=== PATIENT | female | born 1995 | race Caucasian/White ===

== ENCOUNTER 2016-12-22 06:20 | Day surgery (SDC) | payer BC ==
[~2016-12-22 06:20] MED LIST: Lactated Ringers 1,000 ML IV SCH; Sodium Chloride 0.9% 10 ML Syringe FLUSH PRN; Sodium Chloride 0.9% 2.5 ML Syringe FLUSH PRN; ceFAZolin 1 GM in Premix Bag 1 BAG IV ONE
--- NOTE | 2016-12-22 07:05 | PCM.PREANE ---
Preanesthetic Assessment - Anesthesia/Transfusion/Family Hx Anesthesia History: Prior Anesthesia Without Reaction Family History of Anesthesia Reaction: No Transfusion History: No Prior Transfusion(s) Intubation History: Unknown - Review of Systems General: No Symptoms Pulmonary: No Symptoms Cardiovascular: No Symptoms Gastrointestinal: No symptoms Neurological: No Symptoms Other: Reports: None - Physical Assessment Height: 1.73 m Weight: 70.76 kg ASA Class: 2 Mental Status: Alert & Oriented x3 Airway Class: Mallampati = 2 Dentition: Reports: Normal Dentition Thyro-Mental Finger Breadths: 3 Mouth Opening Finger Breadths: 3 ROM/Head Extension: Full Lungs: Clear to auscultation, Normal respiratory effort Cardiovascular: Regular Rate, Regular Rhythm - Allergies Allergies/Adverse Reactions: Allergies Allergy/AdvReac Type Severity Reaction Status Date / Time codeine Allergy Swelling Verified 11/25/13 10:03 - Blood Blood Available: No - Anesthesia Plan Pre-Op Medication Ordered: None - Acknowledgements Anesthesia Type Planned: MAC Pt an Appropriate Candidate for the Planned Anesthesia: Yes Alternatives and Risks of Anesthesia Discussed w Pt/Guardian: Yes Pt/Guardian Understands and Agrees with Anesthesia Plan: Yes PreAnesthesia Questionnaire HEENT History: Reports: Other (See Below) Other HEENT History: wears glasses Respiratory History: Reports: Other (See Below) Other Respiratory History: SOB at times caused by mediastinal lymphadenopathy Hematologic History: Reports: Anemia, Other (See Below) (leukocytosis and reactive trombocytopenia) Oncologic (Cancer) History: Reports: Hodgkin's Lymphoma, Other (See Below) Other Oncologic History: hx aishwarya cath placement - Past Surgical History Head Surgeries/Procedures: Reports: None HEENT Surgical History: Reports: Tonsillectomy Other Surgical History Comment: Port-a-cath placement - HOME MEDS Home Medications: Home Meds . [No Known Home Meds] 12/16/16 [History] - CURRENT (IN HOUSE) MEDS Current Meds: Current Medications Lactated Ringer's (Ringers, Lactated) 1,000 mls @ 125 mls/hr IV ASDIRECTED [facility] Last Admin: 12/22/16 06:53 Dose: 125 mls/hr Sodium Chloride (Saline Flush) 10 ml FLUSH ASDIRECTED PRN PRN Reason: Keep Vein Open Sodium Chloride (Saline Flush) 2.5 ml FLUSH ASDIRECTED PRN PRN Reason: Keep Vein Open Discontinued Medications Cefazolin Sodium/Dextrose 1 gm (/ Premix) 50 mls @ 100 mls/hr IV ONETIME ONE Stop: 12/21/16 13:56
[2016-12-22] MEDS ORDERED: Propofol 200 MG/20 ML SDV ONE (07:11)
[2016-12-22] MEDS ORDERED: fentaNYL 100 MCG/2 ML SDV ONE (07:11)
[2016-12-22] MEDS ORDERED: Lidocaine 2% 5 ML SDV ONE (07:11)
[2016-12-22] MEDS ORDERED: Midazolam 1 MG/ML 2 ML SDV ONE (07:11)
[2016-12-22] MEDS ORDERED: Lidocaine 1% 20 ML MDV ONE (07:23)
[2016-12-22] MEDS ORDERED: Bupivacaine 0.5% 10 ML SDV ONE (07:23)
--- NOTE | 2016-12-22 08:31 | PCM.OPNOTE ---
<Damaso Villegas - Last Filed: 12/22/16 08:31> - General Post-Op/Procedure Note Date of Surgery/Procedure: 12/22/16 Operative Procedure(s): right internal jugular port-o-cath removal Findings: catheter intact Pre Op Diagnosis: right internal jugular port-o-cath removal Post-Op Diagnosis: right internal jugular port-o-cath removal Anesthesia Technique: MAC Primary Surgeon: Gricel Sutton EBL in mLs: 2 Complications: None Condition: Good <Gricel Sutton - Last Filed: 12/22/16 10:39> - General Post-Op/Procedure Note Free Text/Narrative:: Intake & Output 12/21/16 12/22/16 12/22/16 22:59 06:59 14:59 Intake Total 1950 Balance 1950
[2016-12-22 10:32] VITALS: BP 104/58
--- NOTE | 2016-12-23 10:44 | OR ---
SURGEON: ISHA ALANIS MD DATE OF PROCEDURE: 12/22/2016 PREOPERATIVE DIAGNOSIS: Lymphoma. POSTOPERATIVE DIAGNOSIS: Lymphoma. PROCEDURE PERFORMED: Removal of right internal jugular Port-A-Cath. ASSOCIATE EMBALMER/FUNERAL DIRECTOR: Dr. Damaso Villegas, anesthesia resident. ANESTHESIA: MAC. ESTIMATED BLOOD LOSS: 2 mL. FINDINGS: Right internal jugular Port-A-Cath intact. COMPLICATIONS: None. INDICATIONS: The patient is a 21-year-old female, who has finished chemotherapy for lymphoma. The patient presented to clinic for removal of her Port-A-Cath. We discussed the procedure as well as expected perioperative course. We discussed the risks, including bleeding, infection, or damage to surrounding structures. The patient verbalized understanding and wished to proceed. PROCEDURE IN DETAIL: The patient was brought into the operating room and placed on the OR table in supine position. A time-out was completed verifying the patient's name, age, date of , allergies, and procedure to be performed. Monitored anesthesia care was induced. The right chest wall and neck were prepped and draped in usual standard fashion. A 1% lidocaine was used to anesthetize the area over the patient's previous Port-A-Cath scar. I then used a 15 blade to reopen this incision. Using cautery, I dissected down to the level of the port. Using cautery and sharp dissection with the Metzenbaum scissors, I freed the Port-A- Cath from its surrounding scar capsule. There were no sutures on the Port-A- Cath itself. Once I had freed the Port-A-Cath up, I then removed it from the chest. Pressure was held along the right internal jugular vein for approximately 1 minute. I then reinspected the wound and no bleeding was noted. Any small bleeding was controlled with electrocautery. The wound was then closed with interrupted 3-0 Vicryl and a running 4-0 Monocryl stitch in the subcuticular space. Steri-Strips and sterile dressings were applied. The patient tolerated the procedure well and was taken to the PACU in stable condition. SCARLETT AYALA /[id number]
== END 2016-12-22 09:58 | disposition home or self-care (01) ==
LOC: MW.SDS 06:20
PROVIDERS: ATTEND Surgery
PROC: 0JPT0XZ Removal of Tunneled Vascular Access Device from Trunk Subcutaneous Tissue and Fascia, Open Approach (ICD-10-PCS; principal; 2016-12-22)
DX: Z45.2 Encounter for adjustment and management of vascular access device (principal); C81.10 Nodular sclerosis Hodgkin lymphoma, unspecified site; I87.1 Compression of vein; Z92.21 Personal history of antineoplastic chemotherapy; Z86.19 Personal history of other infectious and parasitic diseases; Z88.5 Allergy status to narcotic agent; Z90.89 Acquired absence of other organs; Z98.890 Other specified postprocedural states
CPT/HCPCS: 36415; 36590; 84703; J0690; J2250; J3010; J7120; 00532; 88300; J2704